=== PATIENT | female | born 1990 | race Two or more races ===

== ENCOUNTER 2017-07-01 10:28 | Emergency (ER) | payer SELFPAY ==
[~2017-07-01] VITALS: Ht 170.2 cm; Wt 83.9 kg
[2017-07-01 11:00] VITALS: BP 108/76
[2017-07-01 11:57] LABS: Urine Bacteria NONE SEEN /hpf (None Seen); Urine Blood Negative /uL (Negative); Urine Mucus FEW (None Seen); Urine Specific Gravity 1.026 (1.001-1.035); Urine WBC 3 /hpf (0 - 5)
[2017-07-01 12:01] LABS: Basophils # (auto) 0.1 uL; Eosinophils # (auto) 0.1 uL; Eosinophils % (auto) 2.2 % (0.0-7.0); Hematocrit 43.8 % (36.0-46.0); Hemoglobin 14.6 g/dL (12.2-16.2); Lymphocytes # (auto) 1.2 uL; Lymphocytes % (auto) 18.5 % (10.0-50.0); Mean Corpuscular Hemoglobin 29.5 pg (28.0-32.0); Mean Corpuscular Hgb Conc. 33.3 g/dL (32.0-36.0); Mean Corpuscular Volume 88.6 fL (80.0-100.0); Monocytes # (auto) 0.8 uL; Monocytes % (auto) 12.4 % (0.0-12.0); Neutrophils # (auto) 4.2 uL; Neutrophils % (auto) 65.9 % (37.0-80.0); Nucleated Red Blood Cells % 0.1 %; Platelet Count (auto) 307 10^3/uL (140-450); Red Blood Cells 4.95 10^6/uL (4.0-5.20); Red Cell Distribution Width 13.8 % (11.8-14.3); White Blood Cell 6.4 10^3/uL (4.4-10.8)
[2017-07-01 12:20] LABS: Albumin 3.9 g/dL (3.4-5.0); BUN/Creatinine Ratio 23.9; Bilirubin, Total 0.5 mg/dL (0.2-1.0); Potassium 4.8 mmol/L (3.5-5.1); Total Protein 7.9 g/dL (6.4-8.2)
== END 2017-07-01 18:20 | disposition left against medical advice (07) ==
LOC: ER 10:28
DX: S29.011A Strain of muscle and tendon of front wall of thorax, initial encounter (principal); J40 Bronchitis, not specified as acute or chronic; Z53.29 Procedure and treatment not carried out because of patient's decision for other reasons; X58.XXXA Exposure to other specified factors, initial encounter; Y93.89 Activity, other specified; Y99.8 Other external cause status; Y92.89 Other specified places as the place of occurrence of the external cause
CPT/HCPCS: 36415; 71020; 80053; 81001; 81025; 85025